=== PATIENT | female | born 1985 | race Caucasian/White ===

== ENCOUNTER 2020-10-28 10:22 | Emergency (ER) | payer SELFPAY ==
[~2020-10-28] VITALS: Ht 165.1 cm; Wt 200.0 kg
[2020-10-28 10:57] VITALS: BP 132/74
== END 2020-10-28 11:03 | disposition home or self-care (01) ==
LOC: ER 10:42
DX: U07.1 COVID-19 (principal); R94.31 Abnormal electrocardiogram [ECG] [EKG]
CPT/HCPCS: 93005; 99283